=== PATIENT | male | born 1995 | race Caucasian/White ===

== ENCOUNTER 2020-06-23 04:17 | Emergency (ER) | payer BC ==
[~2020-06-23] VITALS: Ht 180.3 cm; Wt 65.8 kg
[2020-06-23] MEDS ORDERED: GABA600T12 PO (04:33)
[2020-06-23] MEDS ORDERED: QUET200T PO (04:33)
[2020-06-23] MEDS ORDERED: QUET50TA PO (04:33)
--- NOTE | 2020-06-23 04:56 | NUR ---
PATIENT WAS MSE BY DR NICHOLSON IN ROOM 05A. PATIENT NOTED NOT IN ANY DISTRESS.
[2020-06-23 06:00] VITALS: BP 128/88
--- NOTE | 2020-06-23 06:00 | NUR ---
Patient discharged in stable condition with [facility]. Written and verbal after care instructions given. Patient verbalizes understanding of instructions. Stressed follow up or return to ER for worsening s/s.
[2020-06-23 06:53] LABS: *AMPHETAMINE, URINE POSITIVE (NEGATIVE); *CANNABINOID, URINE POSITIVE (NEGATIVE); *COCCAINE, URINE POSITIVE (NEGATIVE); *OPIATE, URINE NEGATIVE (NEGATIVE); *PHENCYCLIDINE SCREEN,URINE NEGATIVE (NEGATIVE)
== END 2020-06-23 06:01 | disposition home or self-care (01) ==
LOC: ER 04:26
DX: Z02.2 Encounter for examination for admission to residential institution (principal); Z20.822 Contact with and (suspected) exposure to COVID-19; F19.10 Other psychoactive substance abuse, uncomplicated; Z86.19 Personal history of other infectious and parasitic diseases; F32.9 Major depressive disorder, single episode, unspecified; F41.9 Anxiety disorder, unspecified; M54.9 Dorsalgia, unspecified; Z79.899 Other long term (current) drug therapy
CPT/HCPCS: A4663